=== PATIENT | male | born 2000 | race Caucasian/White ===

== ENCOUNTER 2021-01-16 21:54 | Emergency (ER) | payer OTHER, BC ==
[2021-01-17] MEDS ORDERED: Acetaminophen/Codeine 30-300mg Tablet ONE (00:20)
== END 2021-01-17 00:45 | disposition home or self-care (01) ==
LOC: ERS 21:54
DX: S92.324A Nondisplaced fracture of second metatarsal bone, right foot, initial encounter for closed fracture (principal); S50.811A Abrasion of right forearm, initial encounter; S80.211A Abrasion, right knee, initial encounter; F17.210 Nicotine dependence, cigarettes, uncomplicated; V19.9XXA Pedal cyclist (driver) (passenger) injured in unspecified traffic accident, initial encounter; Y93.I9 Activity, other involving external motion
CPT/HCPCS: 28470